=== PATIENT | male | born 1970 | race Caucasian/White ===

== ENCOUNTER 2016-06-09 12:12 | Emergency (ER) | payer OTHER ==
[2016-06-09 12:19] VITALS: O2SAT 95
[2016-06-09] MEDS ORDERED: IBUPROFEN 600 MG TAB PO ONE (13:13)
--- NOTE | 2016-06-09 13:13 | EDPHY ---
H & P Time Seen by Provider: 06/09/16 12:18 HPI/ROS: CHIEF COMPLAINT: Right knee pain HISTORY OF PRESENT ILLNESS: 45-year-old male presents emergency department complaining of right knee pain. Patient was twisting and sitting into a chair last night when he felt a pop in his right knee associated with pain. Patient reports his knee feels unstable and he has pain with any weight-bearing. He denies previous history of knee injury. No numbness or tingling in this leg. Patient reports he fell into the chair, no head strike, no neck pain, no loss of consciousness. REVIEW OF SYSTEMS: A comprehensive 10 point review of systems is otherwise negative aside from elements mentioned in the history of present illness. Smoking Status: Never smoked Physical Exam: GEN: Awake, alert, oriented, no acute distress RESP: nl resp effort MSK: Right knee with mild effusion, mild lateral joint line tenderness to palpation, negative valgus and varus stress, negative Beena. Unable to perform Adan and drawer due to patient not tolerating exam, 2+ pedal pulses, sensation intact to light touch SKIN: [place], warm, dry, no break in skin, no rash Constitutional: Initial Vital Signs Temperature (C) 36.7 C 06/09/16 12:16 Heart Rate 105 H 06/09/16 12:16 Respiratory Rate 16 06/09/16 12:16 Blood Pressure 182/116 H 06/09/16 12:16 O2 Sat (%) 95 06/09/16 12:16 O2 Delivery Mode Room Air Allergies/Adverse Reactions: No Known Allergies Allergy (Verified 10/01/14 10:04) Home Medications: Medication Instructions Recorded Lisinopril [Zestril] 20 mg PO 10/01/14 Promethazine HCl [Phenergan] 25 mg PO Q6 #15 tab 10/01/14 Tamsulosin HCl [Flomax] 0.4 mg PO DAILY #7 cap 10/01/14 oxyCODONE/APAP 5/325 [Percocet 1 tab PO Q6 #10 tab 10/01/14 5/325] MDM/Departure - MDM Diagnostics: Knee x-ray independently reviewed by me- Impression: Underlying chondromalacia patella. No acute abnormality. Dictated By: Sunday Connolly MD Medications Given: Discontinued Medications Ibuprofen (Motrin) 600 mg PO EDNOW ONE Stop: 06/09/16 13:14 Last Admin: 06/09/16 13:26 Dose: 600 mg - Depart Disposition: Home, Routine, Self-Care Clinical Impression: Right knee sprain Qualifiers: Encounter type: initial encounter Involved ligament of knee: anterior cruciate ligament Qualifier Code: (S83.511A) Sprain of anterior cruciate ligament of right knee, initial encounter Condition: Good Instructions: ACL Injury (ED), Knee Sprain (ED) Additional Instructions: Rest, ice, elevate. Follow up with orthopedist at 1st available appointment, wear your knee brace and use crutches as needed for ambulation. Return to the emergency department for pain that is not controlled, new symptoms or concerns. Take 650 mg of Tylenol every 8 hours with food for pain for 3-5 days. You need to follow-up with your primary care doctor for your elevated blood pressure. Return to the emergency department for chest pain, shortness of breath, other concerns. Referrals: Jose Arshad MD [Medical Doctor] - As per Instructions (Orthopedist on-call)
[2016-06-09 14:19] VITALS: BP 172/114
[2016-06-09 14:25] VITALS: PULSE 104; RESP 18; TEMP 97.9
--- NOTE | 2016-06-09 14:42 | DX ---
Knee 3 Views CLNLRB R History: Pain. Comparison exam: None available. Findings: Moderate narrowing of the lateral patellofemoral joint is present. A well-corticated bone f ragment superior to the patella is compatible with prior trauma. No acute fracture or joint effusion. Medial and lateral compartments appear intact. Impression: Underlying chondromalacia patella. No acute abnormality.
== END 2016-06-09 14:40 | disposition home or self-care (01) ==
DX: S83.511A Sprain of anterior cruciate ligament of right knee, initial encounter (principal); X58.XXXA Exposure to other specified factors, initial encounter; Y93.89 Activity, other specified
CPT/HCPCS: L1830